=== PATIENT | female | born 1975 | race Native Hawaiian/Other Pacific Islander ===

== ENCOUNTER 2024-07-27 16:52 | Emergency (ER) | payer OTHER ==
[~2024-07-27] VITALS: Ht 170.2 cm; Wt 86.3 kg
[2024-07-27 16:56] VITALS: TEMP 98.4
[2024-07-27] MEDS ORDERED: AMOX875T PO (17:23)
[2024-07-27] MEDS: AMOXICILLIN 500 MG CAP PO ONE (17:28)
[2024-07-27 17:51] VITALS: BP 124/69; O2SAT 98
== END 2024-07-27 17:51 | disposition home or self-care (01) ==
LOC: M ED 16:52
DX: H66.93 Otitis media, unspecified, bilateral (principal); Z79.2 Long term (current) use of antibiotics